=== PATIENT | male | born 1955 | race Caucasian/White ===

== ENCOUNTER 2017-12-30 03:19 | Emergency (ER) | payer OTHER ==
[~2017-12-30] VITALS: Ht 182.9 cm; Wt 140.9 kg
[2017-12-30 03:33] LABS: GLUCOSE,POINT OF CARE 265 MG/DL (70-110)
[2017-12-30] MEDS ORDERED: HYDR-4061 PO (03:34)
[2017-12-30] MEDS ORDERED: GLIP10TA9 PO (03:34)
[2017-12-30] MEDS ORDERED: LISI-618 PO (03:34)
[2017-12-30] MEDS ORDERED: ALLO100T PO (03:34)
[2017-12-30] MEDS ORDERED: INSU100I26 SQ (03:34)
[2017-12-30] MEDS ORDERED: CHLO25TA3 PO (03:34)
[2017-12-30] MEDS ORDERED: METH500T6 PO (03:34)
[2017-12-30] MEDS ORDERED: ATOR40TA71 PO (03:34)
[2017-12-30] MEDS ORDERED: ASPI-1182 PO (03:34)
[2017-12-30] MEDS ORDERED: INSU100V SQ (03:34)
[2017-12-30] MEDS ORDERED: ASPIRIN 81 MG CHEWABLE TABLET PO ONE (04:00)
[2017-12-30 04:15] LABS: BASOPHILS % (AUTO) 0.6 % (0.0-2.0); EOSINOPHILS % (AUTO) 5.3 % (1.0-6.0); HEMATOCRIT 39.7 % (41-53); HEMOGLOBIN 13.6 g/dL (13.5-17.5); LYMPHOCYTES # (AUTO) 2.5 K/uL (1.0-4.8); LYMPHOCYTES % (AUTO) 29.9 % (22.0-44.0); MEAN CORPUSCULAR HEMOGLOBIN 30.2 pg (26.0-34.0); MEAN CORPUSCULAR HGB CONC 34.2 G/dL (31.0-37.0); MEAN CORPUSCULAR VOLUME 88 fL (80-100); MONOCYTES # (AUTO) 0.8 K/uL (0.1-1.0); MONOCYTES % (AUTO) 10.1 % (2.0-9.0); NEUTROPHILS # (AUTO) 4.5 K/uL (1.8-7.7); NEUTROPHILS % (AUTO) 54.1 % (40.0-70.0); PLATELET COUNT (AUTO) 218 K/uL (150-450); RED CELL DISTRIBUTION WIDTH 13.9 % (11.5-14.5)
[2017-12-30 04:26] LABS: ANION GAP 6 mmol/L (8-16); CARBON DIOXIDE 25 mmol/L (22-29); CHLORIDE 102 mmol/L (98-107); CREATININE 1.52 mg/dL (0.60-1.30); GLOMERULAR FILTR. RATE CALC 47 mL/min (>60); GLUCOSE,RANDOM 253 mg/dL (70-110); POTASSIUM 4.2 mmol/L (3.5-5.1); SODIUM SERUM 133 mmol/L (136-145); UREA NITROGEN, BLOOD 30 mg/dL (7-18)
[2017-12-30 04:46] LABS: B-TYPE NATRIURETIC PEPTIDE 14 pg/mL (0-100)
[2017-12-30 05:05] LABS: ALANINE AMINOTRANSFERASE 48 U/L (12-78); ALBUMIN 3.3 g/dL (3.4-5.0); ALKALINE PHOSPHATASE 114 U/L (46-116); ASPARTATE AMINOTRANSFERASE 28 U/L (15-37); BILIRUBIN,TOTAL 0.5 mg/dL (0.1-1.0); CREATINE KINASE, TOTAL 147 U/L (39-308); TOTAL PROTEIN, SERUM 7.1 g/dL (6.4-8.2)
[2017-12-30 08:35] VITALS: BP 115/74
== END 2017-12-30 09:17 | disposition home or self-care (01) ==
LOC: EMS 03:21
DX: R07.9 Chest pain, unspecified (principal); E11.9 Type 2 diabetes mellitus without complications; E78.00 Pure hypercholesterolemia, unspecified; I10 Essential (primary) hypertension; Z79.4 Long term (current) use of insulin; M10.9 Gout, unspecified; Z79.82 Long term (current) use of aspirin; Z87.442 Personal history of urinary calculi; Z79.899 Other long term (current) drug therapy
CPT/HCPCS: 93005; 99285